=== PATIENT | male | born 1940 | race Caucasian/White ===

== ENCOUNTER 2018-08-30 18:00 | Inpatient (IN) | payer MEDICARE | END 2018-09-06 14:36 | LOC: EDH 18:00 → EDHIP 19:40 → 4AH 23:53 | PROC: 0SRR0JZ Replacement of Right Hip Joint, Femoral Surface with Synthetic Substitute, Open Approach (ICD-10-PCS; principal; 2018-09-01 15:25) | DX: S72.001A Fracture of unspecified part of neck of right femur, initial encounter for closed fracture (principal); D68.59 Other primary thrombophilia; N39.0 Urinary tract infection, site not specified; N17.9 Acute kidney failure, unspecified; I69.351 Hemiplegia and hemiparesis following cerebral infarction affecting right dominant side; I48.2 Chronic atrial fibrillation; I10 Essential (primary) hypertension; D50.0 Iron deficiency anemia secondary to blood loss (chronic); I25.10 Atherosclerotic heart disease of native coronary artery without angina pectoris; W01.0XXA Fall on same level from slipping, tripping and stumbling without subsequent striking against object, initial encounter ==